=== PATIENT | male | born 1995 | race Caucasian/White ===

== ENCOUNTER 2016-08-24 22:02 | Inpatient (IN) | payer OTHER ==
[~2016-08-24] VITALS: Ht 154.9 cm; Wt 81.4 kg
[2016-08-24] MEDS ORDERED: ALBUT/IPRATROP 3MG/0.5MG NEB 3 ML VIAL INH STA (22:17)
[2016-08-24] MEDS ORDERED: SODIUM CHLORIDE 0.9% 1000ML 1,000 ML IV STA ×2 (22:17)
[2016-08-24] MEDS ORDERED: ALBUT/IPRATROP 3MG/0.5MG NEB 3 ML VIAL ONE (22:19)
[2016-08-24] MEDS ORDERED: DEXAMETHASONE SOD INJ 10 MG/ML VIAL IV ONE (22:30)
[2016-08-24] MEDS ORDERED: ACET-1256 PO (22:41)
[2016-08-24 22:52] LABS: BASO % 0.2 %; BASO ABS # 0.03 K/uL (0-0.2); COMPLETE YES; EOS % 0.4 %; HEMATOCRIT 39.2 % (42-52); IG% 0.4 %; LYMPH % 8.9 %; MEAN CELL VOLUME 93.8 fL (80-100); MEAN CORPUSCULAR HEMOGLOBIN 31.8 pg (25-34); MEAN CORPUSCULAR HGB CONC 33.9 g/dl (32-36); MEAN PLATELET VOLUME 9.4 fL (7.4-10.4); MONO % 8.9 %; NEUT % 81.2 %; PLATELET COUNT 333 K/uL (130-400); RED BLOOD COUNT 4.18 M/uL (4.7-6.1); WHITE BLOOD COUNT 12.41 K/uL (4.8-10.8)
[2016-08-24] MEDS ORDERED: PIPERACILLIN/TAZOBACTAM 4.5 GM/100ML D5W IV STA (23:01)
[2016-08-24 23:02] LABS: INR 1.1 (0.9-1.1); PARTIAL THROMBOPLASTIN RATIO 1.1; PROTHROMBIN TIME (PATIENT) 11.4 SECONDS (9.0-12.0)
--- NOTE | 2016-08-24 23:09 | DIAGNOSTIC IMAGING REPORT ---
SINGLE VIEW CHEST CLINICAL HISTORY: Sepsis. FINDINGS: An AP, portable, upright chest radiograph is obtained. No prior studies are available for comparison at the time of dictation. The examination is degraded by portable technique and patient rotation. The cardiomediastinal silhouette is unremarkable. Findings suggest pulmonary vascular congestion. Bibasilar airspace opacities are noted. No large pleural effusion or pneumothorax is seen. The bony thorax is grossly intact. IMPRESSION: 1. Findings suggest congestive change which would be atypical in this age group. Clinical correlation will be essential. 2. There are bibasilar airspace opacities. This could represent an infectious/inflammatory pneumonitis or possibly a component of hemorrhage or mild pulmonary edema. Again, clinical correlation will be required. Electronically signed by: Antwan Gibson M.D. 08/24/2016 11:07 PM Dictated Date/Time: 08/24/2016 11:05 PM
[2016-08-24 23:11] LABS: BUN/CREATININE RATIO 11.9 (10-20); MAGNESIUM 2.1 mg/dl (1.8-2.4); POTASSIUM 3.7 mmol/L (3.5-5.1)
[2016-08-24 23:14] LABS: ALB/GLOB RATIO 0.6 (0.9-2)
[2016-08-24 23:28] LABS: VEN BLD GAS O2 SATURATION < 60.0 %; VEN BLOOD GAS BASE EXCESS 2.7 mmol/L; VENOUS BLOOD GAS PCO2 44 mmHg (38.0-50.0); VENOUS BLOOD GAS PO2 27 mmHg
[2016-08-24] MEDS ORDERED: ACETAMINOPHEN 325 MG TAB PO PRN (23:45)
[2016-08-25] VITALS (11 sets, daily range): BP systolic 119–141; BP diastolic 72–87; PULSE 81–107; TEMP 36.5–37.7; O2SAT 90–92; Ht 154.9 cm; Wt 81.4 kg
[2016-08-25] MEDS ORDERED: ACETAMINOPHEN 325 MG TAB ONE (01:01)
--- NOTE | 2016-08-25 03:08 | History and Physical ---
History & Physical Date & Time of Service: Aug 24, 2016 at 23:42 Chief Complaint: Abd Pains,Gagging/Vomiting Primary Care Physician: Jacob Mckinnon M.D. History of Present Illness Source: parent, clinic records, hospital records 21 yo male with PMH of down's syndrome was brought to the ER for cough that has been going on for the last 4 days. History is limited because of pt medical condition down syndrome. As per family, pt has been having a wet cough. He is unable to bring the phlegm up. Also Pt has been having abdominal pain that is non radiated and located in the mid abdomen. family is not sure if pt has any diarrhea because he goes to the bathroom by himself. As per mother, she found one of his underwear in the trash dirty with stool. No recent travel or sick contact. Denies any fever, palpitation, SOB, fever and chills. Social History Smoking Status: Never Smoker Alcohol Use: none Allergies Coded Allergies: No Known Allergies (Unverified , 08/24/16) Home Medications Scheduled Acetaminophen (Tylenol), 1,000 MG PO prn ud Review of Systems Constitutional: No fever, No chills, No sweats Eyes: No redness, No discharge ENT: No hearing loss, No nasal symptoms, No sore throat Respiratory: + cough, No shortness of breath Cardiovascular: No chest pain, No orthopnea, No palpitations Abdomen: + pain, No nausea, No vomiting Musculoskeletal: No calf pain Genitourinary - Male: No hematuria, No dysuria Neurologic: No paralysis, No vertigo Psychiatric: No substance abuse Endocrine: No excessive thirst Hematologic / Lymphatic: No night sweats Integumentary: No rash, No itch Physical Exam Vital Signs Date Time Temp Pulse Resp B/P (MAP) Pulse Ox O2 Delivery O2 Flow Rate FiO2 08/24/16 23:16 108 20 131/74 94 Nasal Cannula 3.5 08/24/16 22:48 105 08/24/16 22:30 95 Mask 8.0 08/24/16 22:30 95 Mask 8.0 08/24/16 22:23 89 Nasal Cannula 4.0 08/24/16 22:12 80 Room Air 08/24/16 22:12 90 Nasal Cannula 4.0 08/24/16 22:06 36.8 124 20 119/69 82 Room Air General Appearance: WD/WN, no apparent distress Head: normocephalic, atraumatic Eyes: PERRL ENT: hearing grossly normal Neck: supple, no JVD Respiratory/Chest: no respiratory distress, no accessory muscle use, + pertinent finding (coarse BS) Cardiovascular: no JVD, + tachycardia Abdomen/GI: normal bowel sounds, soft, + tenderness Back: no CVA tenderness Extremities/Musculoskelatal: no calf tenderness Neurologic/Psych: no motor/sensory deficits, alert, normal mood/affect Skin: warm/dry, no rash Diagnostics Laboratory Results Results Past 24 Hours Test 08/24/16 22:30 08/24/16 22:36 08/24/16 23:21 Range/Units White Blood Count 12.41 4.8-10.8 K/uL Red Blood Count 4.18 4.7-6.1 M/uL Hemoglobin 13.3 14.0-18.0 g/dL Hematocrit 39.2 42-52 % Mean Corpuscular Volume 93.8 80-100 fL Mean Corpuscular Hemoglobin 31.8 25-34 pg Mean Corpuscular Hemoglobin Concent 33.9 32-36 g/dl Platelet Count 333 130-400 K/uL Mean Platelet Volume 9.4 7.4-10.4 fL Neutrophils (%) (Auto) 81.2 % Lymphocytes (%) (Auto) 8.9 % Monocytes (%) (Auto) 8.9 % Eosinophils (%) (Auto) 0.4 % Basophils (%) (Auto) 0.2 % Neutrophils # (Auto) 10.08 1.4-6.5 K/uL Lymphocytes # (Auto) 1.10 1.2-3.4 K/uL Monocytes # (Auto) 1.10 0.11-0.59 K/uL Eosinophils # (Auto) 0.05 0-0.5 K/uL Basophils # (Auto) 0.03 0-0.2 K/uL RDW Standard Deviation 46.3 36.4-46.3 fL RDW Coefficient of Variation 13.4 11.5-14.5 % Immature Granulocyte % (Auto) 0.4 % Immature Granulocyte # (Auto) 0.05 0.00-0.02 K/uL Prothrombin Time 11.4 9.0-12.0 SECONDS Prothromb Time International Ratio 1.1 0.9-1.1 Activated Partial Thromboplast Time 27.3 21.0-31.0 SECONDS Partial Thromboplastin Ratio 1.1 Sodium Level 139 136-145 mmol/L Potassium Level 3.7 3.5-5.1 mmol/L Chloride Level 103 98-107 mmol/L Carbon Dioxide Level 27 21-32 mmol/L Anion Gap 9.0 3-11 mmol/L Blood Urea Nitrogen 12 7-18 mg/dl Creatinine 1.00 0.60-1.40 mg/dl Est Creatinine Clear Calc Drug Dose 103.4 ml/min Estimated GFR () 124.1 Estimated GFR (Non- 107.1 BUN/Creatinine Ratio 11.9 10-20 Random Glucose 105 70-99 mg/dl Calcium Level 9.0 8.5-10.1 mg/dl Magnesium Level 2.1 1.8-2.4 mg/dl Total Bilirubin 0.5 0.2-1 mg/dl Aspartate Amino Transf (AST/SGOT) 22 15-37 U/L Alanine Aminotransferase (ALT/SGPT) 42 12-78 U/L Alkaline Phosphatase 124 45-117 U/L Total Protein 7.9 6.4-8.2 gm/dl Albumin 3.1 3.4-5.0 gm/dl Globulin 4.8 2.5-4.0 gm/dl Albumin/Globulin Ratio 0.6 0.9-2 Bedside Lactic Acid Venous 0.84 0.90-1.70 mmol/L Venous Blood pH 7.42 7.36-7.41 Venous Blood Partial Pressure CO2 44 38.0-50.0 mmHg Venous Blood Partial Pressure O2 27 mmHg Venous Blood HCO3 28 mmol/L Venous Blood Oxygen Saturation < 60.0 % Venous Blood Base Excess 2.7 mmol/L Microbiology Results 08/24/16 Blood Culture, Received Pending 08/24/16 Blood Culture, Received Pending Diagnostic Radiology SINGLE VIEW CHEST CLINICAL HISTORY: Sepsis. FINDINGS: An AP, portable, upright chest radiograph is obtained. No prior studies are available for comparison at the time of dictation. The examination is degraded by portable technique and patient rotation. The cardiomediastinal silhouette is unremarkable. Findings suggest pulmonary vascular congestion. Bibasilar airspace opacities are noted. No large pleural effusion or pneumothorax is seen. The bony thorax is grossly intact. IMPRESSION: 1. Findings suggest congestive change which would be atypical in this age group. Clinical correlation will be essential. 2. There are bibasilar airspace opacities. This could represent an infectious/inflammatory pneumonitis or possibly a component of hemorrhage or mild pulmonary edema. Again, clinical correlation will be required. Electronically signed by: Antwan Gibson M.D. 08/24/2016 11:07 PM Dictated Date/Time: 08/24/2016 11:05 PM Impression Assessment and Plan ACUTE HYPOXIA RESPIRATORY FAILURE Present with cough and WBC mildly elevated CXR showed showed findings suggest pulmonary vascular congestion. Bibasilar airspace opacities are noted Received Zosyn, IVF and decadron in ER Will treat for community acquired pneumonia will start on levaquin 750 mg Duoneb treatment Consider steroid if pt starts wheezing check blood culture and urine for legionella monitor CBC ABDOMINAL PAIN History is limited might be related to gastroenteritis consider abdominal imaging if symptoms worsening diarrhea ?, but if it occurs, will check stools for C-diff, WBC and culture Continue monitor DOWN' SYNDROME Stable PULMONARY VASCULAR CONGESTION ON CXR will watch for sign of fluid overload Might consider a trial of diuretic if worsening. Repeat Chest xray DVT PX SCDs/Ambulate CODE STATUS FULL CODE Level of Care Med/Surg Resuscitation Status FULL RESUSCITATION VTE Prophylaxis VTE Risk Assessment Done? Y/N: Yes Risk Level: Low Given or contraindicated: SCD's
--- NOTE | 2016-08-25 04:16 | EMERGENCY ROOM VISIT NOTE ---
History First contact with patient: 22:16 Chief Complaint: COUGH Stated Complaint: PNEUMONIA History of Present Illness The patient is a 21 year old male who presents to the Emergency Room with complaints of cough, congestion, difficulty breathing for the past few hours has been sick for the past few days. Patient denies chest pain, abdominal pain , diarrhea, sore throat, headache, neck stiffness. He is tolerated by mouth fluids and food. He did have an episode of vomiting after coughing. Review of Systems See HPI for pertinent positives & negatives. A total of 10 systems reviewed and were otherwise negative. Past Medical/Surgical History Medical Problems: (1) Pneumonia Social History Smoking Status: Never Smoker Smokeless Tobacco Use: No Alcohol Use: none Drug Use: none Marital Status: single Housing Status: lives with family Current/Historical Medications Scheduled Acetaminophen (Tylenol), 1,000 MG PO prn ud Allergies Coded Allergies: No Known Allergies (Unverified , 08/24/16) Physical Exam Vital Signs Date Time Temp Pulse Resp B/P (MAP) Pulse Ox O2 Delivery O2 Flow Rate FiO2 08/24/16 23:16 108 20 131/74 94 Nasal Cannula 3.5 08/24/16 22:48 105 08/24/16 22:30 95 Mask 8.0 08/24/16 22:30 95 Mask 8.0 08/24/16 22:23 89 Nasal Cannula 4.0 08/24/16 22:12 80 Room Air 08/24/16 22:12 90 Nasal Cannula 4.0 08/24/16 22:06 36.8 124 20 119/69 82 Room Air Pain Rating (0-10): 0 Physical Exam VITALS: Vitals are noted on the nurse's note and reviewed by myself. Vital signs hypoxic GENERAL: Pleasant male with audible wheeze, came to breathe. SKIN: The skin was without rashes, erythema, edema, or bruising. There is no tenting of the skin. Capillary reflex less than 2 seconds. HEAD: Normocephalic atraumatic. EARS: External auditory canals clear, tympanic membranes pearly hyatt without erythema or effusion bilaterally. EYES: Pupils equal round and reactive to light and accommodation. Conjunctivae without injection, sclerae without icterus. Extraocular movements intact. NOSE: Patent, turbinates without inflammation or discharge. No sinus tenderness. MOUTH: Mucous membranes moist. Pharynx without erythema or exudate. Uvula midline. Airway patent. Tongue does not deviate. NECK: Supple without nuchal rigidity. No lymphadenopathy. No thyromegaly. Cervical spine is nontender. No JVD. HEART: Tachycardic Regular rate and rhythm without murmurs gallops or rubs. LUNGS: Diffusely inspiratory and end expiratory wheezes, without rales or rhonchi. No retractions or accessory muscle use. ABDOMEN: Positive bowel sounds x 4. Normal tympanic percussion. Soft, nontender, without masses or organomegaly. Roblero sign negative. No guarding or rebound tenderness. MUSCULOSKELETAL: No muscle atrophy, erythema, or edema noted. NEURO: Patient was alert and oriented to person place and time. Normal sensation to light and sharp touch. No focal neurological deficits. Medical Decision & Procedures Laboratory Results 08/24/16 22:30 Red Blood Count 4.18, Mean Corpuscular Volume 93.8, Mean Corpuscular Hemoglobin 31.8, Mean Corpuscular Hemoglobin Concent 33.9, Mean Platelet Volume 9.4, Neutrophils (%) (Auto) 81.2, Lymphocytes (%) (Auto) 8.9, Monocytes (%) (Auto) 8.9, Eosinophils (%) (Auto) 0.4, Basophils (%) (Auto) 0.2, Neutrophils # (Auto) 10.08, Lymphocytes # (Auto) 1.10, Monocytes # (Auto) 1.10, Eosinophils # (Auto) 0.05, Basophils # (Auto) 0.03 08/24/16 22:30 Test 08/24/16 22:30 08/24/16 22:36 08/24/16 23:21 White Blood Count 12.41 K/uL (4.8-10.8) Red Blood Count 4.18 M/uL (4.7-6.1) Hemoglobin 13.3 g/dL (14.0-18.0) Hematocrit 39.2 % (42-52) Mean Corpuscular Volume 93.8 fL (80-100) Mean Corpuscular Hemoglobin 31.8 pg (25-34) Mean Corpuscular Hemoglobin Concent 33.9 g/dl (32-36) Platelet Count 333 K/uL (130-400) Mean Platelet Volume 9.4 fL (7.4-10.4) Neutrophils (%) (Auto) 81.2 % Lymphocytes (%) (Auto) 8.9 % Monocytes (%) (Auto) 8.9 % Eosinophils (%) (Auto) 0.4 % Basophils (%) (Auto) 0.2 % Neutrophils # (Auto) 10.08 K/uL (1.4-6.5) Lymphocytes # (Auto) 1.10 K/uL (1.2-3.4) Monocytes # (Auto) 1.10 K/uL (0.11-0.59) Eosinophils # (Auto) 0.05 K/uL (0-0.5) Basophils # (Auto) 0.03 K/uL (0-0.2) RDW Standard Deviation 46.3 fL (36.4-46.3) RDW Coefficient of Variation 13.4 % (11.5-14.5) Immature Granulocyte % (Auto) 0.4 % Immature Granulocyte # (Auto) 0.05 K/uL (0.00-0.02) Prothrombin Time 11.4 SECONDS (9.0-12.0) Prothromb Time International Ratio 1.1 (0.9-1.1) Activated Partial Thromboplast Time 27.3 SECONDS (21.0-31.0) Partial Thromboplastin Ratio 1.1 Anion Gap 9.0 mmol/L (3-11) Est Creatinine Clear Calc Drug Dose 103.4 ml/min Estimated GFR () 124.1 Estimated GFR (Non- 107.1 BUN/Creatinine Ratio 11.9 (10-20) Calcium Level 9.0 mg/dl (8.5-10.1) Magnesium Level 2.1 mg/dl (1.8-2.4) Total Bilirubin 0.5 mg/dl (0.2-1) Aspartate Amino Transf (AST/SGOT) 22 U/L (15-37) Alanine Aminotransferase (ALT/SGPT) 42 U/L (12-78) Alkaline Phosphatase 124 U/L (45-117) Total Protein 7.9 gm/dl (6.4-8.2) Albumin 3.1 gm/dl (3.4-5.0) Globulin 4.8 gm/dl (2.5-4.0) Albumin/Globulin Ratio 0.6 (0.9-2) Bedside Lactic Acid Venous 0.84 mmol/L (0.90-1.70) Venous Blood pH 7.42 (7.36-7.41) Venous Blood Partial Pressure CO2 44 mmHg (38.0-50.0) Venous Blood Partial Pressure O2 27 mmHg Venous Blood HCO3 28 mmol/L Venous Blood Oxygen Saturation < 60.0 % Venous Blood Base Excess 2.7 mmol/L Medications Administered Medications (Trade) Dose Ordered Sig/Yun Route Start Time Stop Time Status Last Admin Dose Admin Dexamethasone Sodium Phosphate (Decadron Inj) 10 mg NOW ONCE IV 08/24/16 22:30 08/24/16 22:31 DC 08/24/16 22:35 10 MG Albuterol/ Ipratropium (Duoneb) 3 ml NOW STAT INH 08/24/16 22:17 08/24/16 22:20 DC 08/24/16 22:23 3 ML Sodium Chloride 1,000 ml @ 999 mls/hr Q1H1M STAT IV 08/24/16 22:17 08/24/16 23:17 DC 08/24/16 22:36 999 MLS/HR Sodium Chloride 1,000 ml @ 125 mls/hr Q8H STAT IV 08/24/16 22:17 08/25/16 01:12 DC 08/24/16 22:36 125 MLS/HR Piperacillin Sod/ Tazobactam Sod (Zosyn Iv) 4.5 gm NOW STAT IV 08/24/16 23:01 08/24/16 23:02 DC 08/24/16 23:16 4.5 GM ED Course Prior records/ancillary studies reviewed. Triage Nursing notes reviewed. Additional history obtained from the family. The patient's history was concerning for respiratory difficulties. Differential diagnosis: Etiologies such as infections, reactive airway disease, pneumonia, pneumothorax , COPD, CHF, cardiac ischemia, pulmonary embolism, musculoskeletal, gastrointestinal, as well as others were entertained. Physical examination: As above. ER treatment provided: Nebulizer, steroids, Zosyn, IV fluids On reassessment the patient felt better. Diagnostic interpretation by me: The electrocardiogram was negative for acute ischemic or pathologic change. Normal sinus, normal intervals, no acute ST-T wave changes with rate of 1:15. Impression sinus or cardiac turgor by myself The labs revealed leukocytosis, blood cultures pending Imaging studies: Chest x-ray as above. SINGLE VIEW CHEST CLINICAL HISTORY: Sepsis. FINDINGS: An AP, portable, upright chest radiograph is obtained. No prior studies are available for comparison at the time of dictation. The examination is degraded by portable technique and patient rotation. The cardiomediastinal silhouette is unremarkable. Findings suggest pulmonary vascular congestion. Bibasilar airspace opacities are noted. No large pleural effusion or pneumothorax is seen. The bony thorax is grossly intact. IMPRESSION: 1. Findings suggest congestive change which would be atypical in this age group. Clinical correlation will be essential. 2. There are bibasilar airspace opacities. This could represent an infectious/inflammatory pneumonitis or possibly a component of hemorrhage or mild pulmonary edema. Again, clinical correlation will be required. Electronically signed by: Antwan Gibson M.D. 08/24/2016 11:07 PM Dictated Date/Time: 08/24/2016 11:05 PM Consultation: A consultation was placed with the [facility] hospitalist. The case was discussed and diagnostics were reviewed. The patient was evaluated in the ER for further treatment. This appears to be consistent with pneumonia with hypoxemia with sepsis. Patient was struggling to breathe. He was placed on oxygen and given a nebulizer. He great improvement. His sats were in the 80s. He cannot maintain his O2 on room air. He had extensive pneumonia on chest x-ray. He is started on broad-spectrum antibiotics and blood cultures are pending. Negative lactic acid. He'll be evaluated by medicine for admission. By the evaluation outlined above emergent etiologies such as CHF, cardiac ischemia, pulmonary embolism, pneumothorax, musculoskeletal, as well as others were deemed relatively unlikely. The pt informed about the findings as listed above. All questions were answered and pleased with the treatment. Case reviewed with my attending Medical Decision As above Impression Primary Impression: Pneumonia Critical Care I have personally spent greater than 30 minutes of critical care time in the direct management of this patient. This includes bedside care, interpretation of diagnostic studies, and testing, discussion with consultants, patient, and family members, and other required patient management activities. This 30 minutes is in excess of all separately billable procedures. Departure Information Dispostion Admitted as an inpatient Condition GOOD Referrals Jacob Mckinnon M.D. (PCP) Forms HOME CARE DOCUMENTATION FORM, IMPORTANT VISIT INFORMATION Patient Instructions My [facility] Problem Qualifiers Primary Impression: Pneumonia Pneumonia type: due to unspecified organism Laterality: bilateral Lung location: unspecified part of lung Qualified Codes: J18.9 - Pneumonia, unspecified organism
[2016-08-25] MEDS: LEVOFLOXACIN / D5W 750 MG in PREMIXED IN D5W 150 ML IV SCH (05:31)
[2016-08-25] MEDS: ALBUT/IPRATROP 3MG/0.5MG NEB 3 ML VIAL INH SCH ×4 (07:01→18:55)
[2016-08-25 07:50] LABS: BASO % 0.1 %; BASO ABS # 0.01 K/uL (0-0.2); COMPLETE YES; HEMATOCRIT 41.6 % (42-52); IG% 0.3 %; LYMPH % 8.9 %; LYMPH ABS # 0.93 K/uL (1.2-3.4); MEAN CELL VOLUME 94.3 fL (80-100); MEAN CORPUSCULAR HGB CONC 33.9 g/dl (32-36); MEAN PLATELET VOLUME 9.2 fL (7.4-10.4); MONO % 0.5 %; NEUT % 90.2 %; PLATELET COUNT 328 K/uL (130-400); RED BLOOD COUNT 4.41 M/uL (4.7-6.1); WHITE BLOOD COUNT 10.44 K/uL (4.8-10.8)
--- NOTE | 2016-08-25 14:06 | Progress Note ---
Subjective Date of Service: Aug 25, 2016. Subjective Pt evaluation today including: conversation w/ patient, physical exam, lab review, review of studies, review of inpatient medication list Saw/examined the patient in room 417 Doing okay today on 3L O2 via NC no chest pain/shortness of breath improved PO intake Medications Current Inpatient Medications Medications (Trade) Dose Ordered Sig/Yun Route Start Time Stop Time Status Last Admin Dose Admin Acetaminophen (Tylenol Tab) 650 mg Q4H PRN PO 08/24/16 23:45 09/23/16 23:44 Albuterol/ Ipratropium (Duoneb) 3 ml QIDR INH 08/25/16 08:00 09/24/16 07:59 08/25/16 11:22 3 ML Levofloxacin 750 mg/Prmx 150 ml @ 100 mls/hr Q24H IV 08/25/16 05:00 09/01/16 04:59 08/25/16 05:31 100 MLS/HR Objective Vital Signs Date Time Temp Pulse Resp B/P (MAP) Pulse Ox O2 Delivery O2 Flow Rate FiO2 08/25/16 11:31 82 18 90 Nasal Cannula 3.0 08/25/16 08:07 36.5 94 20 132/87 (102) 90 2.0 08/25/16 08:00 91 Nasal Cannula 3.0 08/25/16 07:03 86 18 91 Room Air 08/25/16 02:33 37.1 08/25/16 01:23 Nasal Cannula 4.0 08/25/16 01:19 37.7 107 18 119/72 08/25/16 00:16 107 20 128/71 93 08/24/16 23:16 108 20 131/74 94 Nasal Cannula 3.5 08/24/16 22:48 105 08/24/16 22:30 95 Mask 8.0 08/24/16 22:30 95 Mask 8.0 08/24/16 22:23 89 Nasal Cannula 4.0 08/24/16 22:12 80 Room Air 08/24/16 22:12 90 Nasal Cannula 4.0 08/24/16 22:06 36.8 124 20 119/69 82 Room Air Physical Exam General Appearance: no apparent distress, + pertinent finding (Down's syndrome ; O2 via NC) Respiratory/Chest: no respiratory distress, no accessory muscle use Cardiovascular: no edema Neurologic/Psychiatric: alert, normal mood/affect Laboratory Results Last 24 Hours Test 08/24/16 22:30 08/24/16 22:36 08/24/16 23:21 08/25/16 07:38 White Blood Count 12.41 K/uL 10.44 K/uL Red Blood Count 4.18 M/uL 4.41 M/uL Hemoglobin 13.3 g/dL 14.1 g/dL Hematocrit 39.2 % 41.6 % Mean Corpuscular Volume 93.8 fL 94.3 fL Mean Corpuscular Hemoglobin 31.8 pg 32.0 pg Mean Corpuscular Hemoglobin Concent 33.9 g/dl 33.9 g/dl Platelet Count 333 K/uL 328 K/uL Mean Platelet Volume 9.4 fL 9.2 fL Neutrophils (%) (Auto) 81.2 % 90.2 % Lymphocytes (%) (Auto) 8.9 % 8.9 % Monocytes (%) (Auto) 8.9 % 0.5 % Eosinophils (%) (Auto) 0.4 % 0.0 % Basophils (%) (Auto) 0.2 % 0.1 % Neutrophils # (Auto) 10.08 K/uL 9.42 K/uL Lymphocytes # (Auto) 1.10 K/uL 0.93 K/uL Monocytes # (Auto) 1.10 K/uL 0.05 K/uL Eosinophils # (Auto) 0.05 K/uL 0.00 K/uL Basophils # (Auto) 0.03 K/uL 0.01 K/uL RDW Standard Deviation 46.3 fL 46.2 fL RDW Coefficient of Variation 13.4 % 13.4 % Immature Granulocyte % (Auto) 0.4 % 0.3 % Immature Granulocyte # (Auto) 0.05 K/uL 0.03 K/uL Prothrombin Time 11.4 SECONDS Prothromb Time International Ratio 1.1 Activated Partial Thromboplast Time 27.3 SECONDS Partial Thromboplastin Ratio 1.1 Sodium Level 139 mmol/L Potassium Level 3.7 mmol/L Chloride Level 103 mmol/L Carbon Dioxide Level 27 mmol/L Anion Gap 9.0 mmol/L Blood Urea Nitrogen 12 mg/dl Creatinine 1.00 mg/dl Est Creatinine Clear Calc Drug Dose 103.4 ml/min Estimated GFR () 124.1 Estimated GFR (Non- 107.1 BUN/Creatinine Ratio 11.9 Random Glucose 105 mg/dl Calcium Level 9.0 mg/dl Magnesium Level 2.1 mg/dl Total Bilirubin 0.5 mg/dl Aspartate Amino Transf (AST/SGOT) 22 U/L Alanine Aminotransferase (ALT/SGPT) 42 U/L Alkaline Phosphatase 124 U/L Total Protein 7.9 gm/dl Albumin 3.1 gm/dl Globulin 4.8 gm/dl Albumin/Globulin Ratio 0.6 Bedside Lactic Acid Venous 0.84 mmol/L Venous Blood pH 7.42 Venous Blood Partial Pressure CO2 44 mmHg Venous Blood Partial Pressure O2 27 mmHg Venous Blood HCO3 28 mmol/L Venous Blood Oxygen Saturation < 60.0 % Venous Blood Base Excess 2.7 mmol/L Assessment and Plan This is a 21 year old male with Down's Syndrome presents with productive cough Community Acquired Pneumonia CXR = There are bibasilar airspace opacities mild leukocytosis on admission given Levaquin; WBC normalized, afebrile supplemental O2 wean O2 as tolerated continue IV abx. convert to PO on discharge repeat CXR in 1-2 days DVT ppx SCDs FULL CODE
[2016-08-26] VITALS (7 sets, daily range): BP systolic 93–126; BP diastolic 52–78; PULSE 70–83; TEMP 36.3–36.5; O2SAT 91–97
[2016-08-26] MEDS: LEVOFLOXACIN / D5W 750 MG in PREMIXED IN D5W 150 ML IV SCH (04:44)
[2016-08-26 06:51] LABS: HEMATOCRIT 39.2 % (42-52); MEAN CELL VOLUME 95.1 fL (80-100); MEAN CORPUSCULAR HEMOGLOBIN 31.8 pg (25-34); MEAN CORPUSCULAR HGB CONC 33.4 g/dl (32-36); MEAN PLATELET VOLUME 9.1 fL (7.4-10.4); PLATELET COUNT 365 K/uL (130-400); RED BLOOD COUNT 4.12 M/uL (4.7-6.1); WHITE BLOOD COUNT 12.79 K/uL (4.8-10.8)
[2016-08-26] MEDS: ALBUT/IPRATROP 3MG/0.5MG NEB 3 ML VIAL INH SCH ×4 (07:22→19:13)
[2016-08-26 07:23] LABS: BUN/CREATININE RATIO 14.6 (10-20); POTASSIUM 4.1 mmol/L (3.5-5.1)
--- NOTE | 2016-08-26 10:48 | Progress Note ---
Subjective Date of Service: Aug 26, 2016. Subjective Pt evaluation today including: conversation w/ patient, conversation w/ family , physical exam, lab review, review of studies, review of inpatient medication list Saw/examined the patient in room 417 Doing well, no problems/issues to note supplemental O2 on via nasal cannula Review of Systems Respiratory: No cough, No sputum, No shortness of breath Cardiac: No chest pain Medications Current Inpatient Medications Medications (Trade) Dose Ordered Sig/Yun Route Start Time Stop Time Status Last Admin Dose Admin Acetaminophen (Tylenol Tab) 650 mg Q4H PRN PO 08/24/16 23:45 09/23/16 23:44 Albuterol/ Ipratropium (Duoneb) 3 ml QIDR INH 08/25/16 08:00 09/24/16 07:59 08/26/16 07:22 3 ML Levofloxacin 750 mg/Prmx 150 ml @ 100 mls/hr Q24H IV 08/25/16 05:00 09/01/16 04:59 08/26/16 04:44 100 MLS/HR Objective Vital Signs Date Time Temp Pulse Resp B/P (MAP) Pulse Ox O2 Delivery O2 Flow Rate FiO2 08/26/16 08:00 36.3 83 20 126/78 (94) 95 2.0 08/26/16 08:00 Nasal Cannula 2.0 08/26/16 07:22 73 14 97 Nasal Cannula 3.0 08/26/16 00:45 Nasal Cannula 3.0 08/25/16 23:05 36.9 81 18 126/75 (92) 92 Nasal Cannula 2.0 08/25/16 21:16 Nasal Cannula 3.0 08/25/16 18:55 94 18 91 Nasal Cannula 3.0 08/25/16 16:14 36.5 102 18 141/81 (101) 90 Nasal Cannula 3.0 08/25/16 16:00 91 Nasal Cannula 3.0 08/25/16 15:20 87 18 91 Nasal Cannula 3.0 08/25/16 11:31 82 18 90 Nasal Cannula 3.0 Physical Exam General Appearance: no apparent distress Respiratory/Chest: chest non-tender, lungs clear, normal breath sounds, no respiratory distress, no accessory muscle use Cardiovascular: regular rate, rhythm, no edema, no murmur Laboratory Results Last 24 Hours Test 08/26/16 06:31 White Blood Count 12.79 K/uL Red Blood Count 4.12 M/uL Hemoglobin 13.1 g/dL Hematocrit 39.2 % Mean Corpuscular Volume 95.1 fL Mean Corpuscular Hemoglobin 31.8 pg Mean Corpuscular Hemoglobin Concent 33.4 g/dl RDW Standard Deviation 48.0 fL RDW Coefficient of Variation 13.9 % Platelet Count 365 K/uL Mean Platelet Volume 9.1 fL Sodium Level 145 mmol/L Potassium Level 4.1 mmol/L Chloride Level 108 mmol/L Carbon Dioxide Level 30 mmol/L Anion Gap 7.0 mmol/L Blood Urea Nitrogen 15 mg/dl Creatinine 1.00 mg/dl Est Creatinine Clear Calc Drug Dose 105.6 ml/min Estimated GFR () 124.1 Estimated GFR (Non- 107.1 BUN/Creatinine Ratio 14.6 Random Glucose 117 mg/dl Calcium Level 9.0 mg/dl Assessment and Plan This is a 21 year old male with Down's Syndrome presents with productive cough Community Acquired Pneumonia 08/26 continue IV abx. for another 1-2 days switch to PO for discharge wean O2 as tolerated 08/25 CXR = There are bibasilar airspace opacities mild leukocytosis on admission given Levaquin; WBC normalized, afebrile supplemental O2 wean O2 as tolerated continue IV abx. convert to PO on discharge repeat CXR in 1-2 days DVT ppx SCDs FULL CODE
[2016-08-27] MEDS: LEVOFLOXACIN / D5W 750 MG in PREMIXED IN D5W 150 ML IV SCH (04:47)
[2016-08-27 06:53] LABS: HEMATOCRIT 39.9 % (42-52); MEAN CELL VOLUME 96.1 fL (80-100); MEAN CORPUSCULAR HEMOGLOBIN 32.3 pg (25-34); MEAN CORPUSCULAR HGB CONC 33.6 g/dl (32-36); PLATELET COUNT 399 K/uL (130-400); RED BLOOD COUNT 4.15 M/uL (4.7-6.1); WHITE BLOOD COUNT 8.53 K/uL (4.8-10.8)
[2016-08-27 07:19] VITALS: PULSE 78; O2SAT 97
[2016-08-27] MEDS: ALBUT/IPRATROP 3MG/0.5MG NEB 3 ML VIAL INH SCH (07:19)
[2016-08-27 07:31] VITALS: BP 131/77; PULSE 75; TEMP 36.5; O2SAT 95
--- NOTE | 2016-08-27 10:18 | Progress Note ---
Subjective Date of Service: Aug 27, 2016. Subjective Pt evaluation today including: conversation w/ patient, physical exam, lab review, review of studies, review of inpatient medication list Saw/examined the patient in room 417 No problems/issues to note today; off of supplemental oxygen since last evening and saturating well Currently playing [employer] and watching TV and in no distress. Medications Current Inpatient Medications Medications (Trade) Dose Ordered Sig/Yun Route Start Time Stop Time Status Last Admin Dose Admin Acetaminophen (Tylenol Tab) 650 mg Q4H PRN PO 08/24/16 23:45 09/23/16 23:44 Albuterol/ Ipratropium (Duoneb) 3 ml QIDR INH 08/25/16 08:00 09/24/16 07:59 08/27/16 07:19 3 ML Levofloxacin (Levaquin Tab) 750 mg DAILY@11 PO 08/28/16 08:00 08/31/16 11:01 Objective Vital Signs Date Time Temp Pulse Resp B/P (MAP) Pulse Ox O2 Delivery O2 Flow Rate FiO2 08/27/16 08:00 Room Air 08/27/16 07:31 36.5 75 18 131/77 (95) 95 Room Air 08/27/16 07:19 78 12 97 Room Air 08/27/16 00:10 Room Air 08/26/16 23:57 36.5 70 20 93/52 (66) 91 Room Air 08/26/16 20:20 Room Air 08/26/16 19:13 77 16 96 Room Air 08/26/16 16:00 Room Air 08/26/16 15:37 36.3 83 18 112/70 (84) 97 08/26/16 15:29 74 14 91 Room Air 08/26/16 11:12 70 14 95 Nasal Cannula 2.0 Physical Exam General Appearance: no apparent distress, + pertinent finding (Down's syndrome) Respiratory/Chest: no respiratory distress, no accessory muscle use, + crackles (mild crackles) Cardiovascular: regular rate, rhythm, no edema, no murmur Laboratory Results Last 24 Hours Test 08/27/16 06:18 White Blood Count 8.53 K/uL Red Blood Count 4.15 M/uL Hemoglobin 13.4 g/dL Hematocrit 39.9 % Mean Corpuscular Volume 96.1 fL Mean Corpuscular Hemoglobin 32.3 pg Mean Corpuscular Hemoglobin Concent 33.6 g/dl RDW Standard Deviation 50.1 fL RDW Coefficient of Variation 14.2 % Platelet Count 399 K/uL Mean Platelet Volume 9.0 fL Assessment and Plan This is a 21 year old male with Down's Syndrome presents with productive cough Community Acquired Pneumonia 08/27 patient is doing well, afebrile, leukocytosis resolved off of supplemental oxygen will switch Levaquin to PO and continue for a total of 10 days 08/26 continue IV abx. for another 1-2 days switch to PO for discharge wean O2 as tolerated 08/25 CXR = There are bibasilar airspace opacities mild leukocytosis on admission given Levaquin; WBC normalized, afebrile supplemental O2 wean O2 as tolerated continue IV abx. convert to PO on discharge repeat CXR in 1-2 days DVT ppx SCDs FULL CODE
[2016-08-27] MEDS ORDERED: ALBU1.257 NEB (10:20)
[2016-08-27] MEDS ORDERED: LVQ750 PO (10:20)
--- NOTE | 2016-08-27 10:24 | Discharge Instructions ---
Discharge Instructions Date of Service Aug 27, 2016. Admission Reason for Admission: Pneumonia Discharge Discharge Diagnosis / Problem: Community Acquired Pneumonia Discharge Goals Goal(s): Decrease discomfort, Improve function, Diagnostic testing, Therapeutic intervention Activity Recommendations Activity Limitations: resume your previous activity . Instructions / Follow-Up Instructions / Follow-Up Please follow-up with Dr. Mckinnon on August 30 at 12:20PM Will be prescribed Levaquin 750mg once daily for 6 more days Will be prescribed Albuterol solution for nebulizer - use as needed Current Hospital Diet Patient's current hospital diet: Low Sodium Diet (2gm Na) Discharge Diet Recommended Diet: Low Sodium Diet (2gm Na) Pending Studies Studies pending at discharge: no Medical Emergencies . Who to Call and When: Medical Emergencies: If at any time you feel your situation is an emergency, please call 911 immediately. . Non-Emergent Contact Non-Emergency issues call your: Primary Care Provider . . "Provider Documentation" section prepared by Brad Jackson. . VTE Core Measure Inpt VTE Proph given/why not?: SCD's
--- NOTE | 2016-08-27 10:27 | Discharge Summary ---
Discharge Summary Date of Service Aug 27, 2016. Discharge Summary Admission Date: Aug 24, 2016 at 23:42 Discharge Date: Aug 27, 2016 Discharge Disposition: Home Principal Diagnosis: Community Acquired Pneumonia Medication Reconciliation New Medications: Albuterol Sulfate (Albuterol Sulfate) 1.25 Mg/3 Ml Neb 1 VIAL NEB Q4 for 5 Days, #75 ML Levofloxacin (Levofloxacin) 750 Mg Tab 750 MG PO DAILY for 6 Days, #6 TAB Continued Medications: Acetaminophen (Tylenol) 500 Mg Tab 1000 MG PO prn ud, TAB Admission Information HPI (per Admitting provider): 21 yo male with PMH of down's syndrome was brought to the ER for cough that has been going on for the last 4 days. History is limited because of pt medical condition down syndrome. As per family, pt has been having a wet cough. He is unable to bring the phlegm up. Also Pt has been having abdominal pain that is non radiated and located in the mid abdomen. family is not sure if pt has any diarrhea because he goes to the bathroom by himself. As per mother, she found one of his underwear in the trash dirty with stool. No recent travel or sick contact. Denies any fever, palpitation, SOB, fever and chills. Physical Exam (per Admitting): General Appearance: WD/WN, no apparent distress Head: normocephalic, atraumatic Eyes: PERRL ENT: hearing grossly normal Neck: supple, no JVD Respiratory/Chest: no respiratory distress, no accessory muscle use, + pertinent finding (coarse BS) Cardiovascular: no JVD, + tachycardia Abdomen/GI: normal bowel sounds, soft, + tenderness Back: no CVA tenderness Extremities/Musculoskelatal: no calf tenderness Neurologic/Psych: no motor/sensory deficits, alert, normal mood/affect Skin: warm/dry, no rash Hospital Course This is a 21 year old male with Down's Syndrome presents with productive cough Community Acquired Pneumonia 08/27 patient is doing well, afebrile, leukocytosis resolved off of supplemental oxygen will switch Levaquin to PO and continue for a total of 10 days 08/26 continue IV abx. for another 1-2 days switch to PO for discharge wean O2 as tolerated 08/25 CXR = There are bibasilar airspace opacities mild leukocytosis on admission given Levaquin; WBC normalized, afebrile supplemental O2 wean O2 as tolerated continue IV abx. convert to PO on discharge repeat CXR in 1-2 days DVT ppx SCDs FULL CODE Total time spent on discharge = 25 minutes This includes examination of the patient, discharge planning, medication reconciliation, and communication with other providers. Discharge Instructions Please follow-up with Dr. Mckinnon on August 30 at 12:20PM Will be prescribed Levaquin 750mg once daily for 6 more days Will be prescribed Albuterol solution for nebulizer - use as needed Additional Copies To Jacob Mckinnon M.D.
[2016-08-27 10:41] VITALS: BP 131/77; PULSE 75; TEMP 36.5; O2SAT 95
[2016-08-28] MEDS ORDERED: LEVOFLOXACIN 750 MG TAB PO SCH (08:00)
== END 2016-08-27 11:02 | disposition home or self-care (01) | DRG 193 ==
LOC: C.EDB 22:03 → C.4E 23:42 → ENRESERV 23:58
PROVIDERS: ADMIT Internal Medicine; ATTEND Hospitalist
DX: J18.9 Pneumonia, unspecified organism (principal); J96.01 Acute respiratory failure with hypoxia; R10.9 Unspecified abdominal pain; Q90.9 Down syndrome, unspecified; Z79.899 Other long term (current) drug therapy